=== PATIENT | female | born 1990 | race Caucasian/White ===

== ENCOUNTER 2018-11-30 09:21 | Inpatient (IN) | payer MEDICAID ==
[~2018-11-30] VITALS: Ht 154.9 cm; Wt 79.6 kg
[~2018-11-30 09:21] MED LIST: EPHEDrine SULFATE 50 MG/5 ML SYG ONE
[2018-11-30 09:38] VITALS: BP 119/69; Ht 154.9 cm; Wt 79.6 kg
[2018-11-30] MEDS ORDERED: PREN1TAB71 PO (09:39)
[2018-11-30] MEDS ORDERED: LACTATED RINGER'S 1,000 ML IV SCH ×2 (10:10→16:14)
--- NOTE | 2018-11-30 10:10 | TRIAGE ---
OB Triage Datetime Report Generated by CPN: 11/30/2018 10:10 Datetime: 11/30/2018 09:43 Stage of : OB Triage Assessment Type: Triage Maternal Assessment Level of Consciousness: Fully Conscious DTR's/Clonus: DTRs 2+; No Clonus Headache: Denies Blurred Vision: No Respiratory Effort: Unlabored; Regular Rhythm; Equal Expansion Breath Sounds, Left: Clear and Equal Breath Sounds, Right: Clear and Equal Nausea/Vomiting: Denies RUQ Epigastric Pain: Denies Lower Extremities Edema: None Degree: None Upper Extremities Edema: None Degree: None Facial Edema: None Temperature Route: Oral Fall Risk Assessment History of Falling: (0) No Secondary Diagnosis: (0) No Ambulatory Aid: (0) Bedrest/Nurse Assist IV Therapy: (0) No Gait: (0) Normal/Bedrest/Immobile Mental Status: (0) Oriented to Own Ability Fall Score: 0 Fall Risk Score Definition: No Risk: No action required Labor Evaluation Monitor Mode: External Heart Rate Monitor Mode: External US Pain Assessment Pain Scale: 8 Pain Presence: Intermittent Pain Type: Cramping Pain Location: Abdomen Vaginal Exam Dilatation (cms): 4.0 Effacement (%): 80 Station: -2 Exam By: Miracle ASHBY Datetime: 11/30/2018 09:42 Time of Arrival: 11/30/2018 09:17 EGA: 39.2 Arrived By: Ambulatory Arrived From: Home Chief Complaint: UC'S SCEDULED C/SECTION FOR TONIGHT Movement: Present Contractions: Regular Time Contractions Began: 11/30/2018 01:00 Contractions: Q 5 MIN PER PATIENT Rupture of Membranes: Denies Vaginal Bleeding: None Vaginal Discharge: Denies Recent Sexual Intercouse: Denies Abdominal Trauma: Not Applicable Patient Complaints: Contractions Time Provider Notified: 11/30/2018 10:00 Provider Notified: DR. SCHWARZ Initial Plan: EF VE
[2018-11-30] MEDS ORDERED: AMPICILLIN 2 GM/NS (PMX) 100 ML ONE (10:26)
[2018-11-30] MEDS ORDERED: AMPICILLIN 2 GM/NS (PMX) 100 ML IVPB ONE (10:30)
[2018-11-30] MEDS ORDERED: CITRIC ACID/NA CITRATE 30 ML CUP PO ONE (10:30)
[2018-11-30] MEDS ORDERED: OXYTOCIN 30 UNITS/LR 500 ML IV PRN ×2 (10:30→16:30)
[2018-11-30] MEDS ORDERED: CARBOPROST 250 MCG INJ IM PRN ×2 (10:30→16:30)
[2018-11-30] MEDS ORDERED: OXYTOCIN 30 UNITS/LR 500 ML IV SCH (10:30)
[2018-11-30] MEDS ORDERED: CEFAZOLIN 2 GM/50 ML (PMX) 50 ML IVPB SCH (10:30)
[2018-11-30] MEDS ORDERED: MISOPROSTOL 200 MCG TAB PR PRN ×2 (10:30→16:30)
[2018-11-30] MEDS ORDERED: METHYLERGONOVINE 0.2 MG INJ IM PRN ×2 (10:30→16:30)
--- NOTE | 2018-11-30 11:05 | HP ---
Date/Time of Note Date/Time of Note DATE: 11/30/18 TIME: 10:53 OB - History Hx of Present Free Text/Dictation 28y.o at 39weeks who had c/s who was scheduled tonite for elective Rc/s,came in active labor with intact membrane. VE 4-5cm CAT I tracing GBS pos 2gm ampicillin given get ready for c/s since her OB is going to be available in another 8-9 hours. patient also signed for tubal sterilization,re counselled,she desired to have it done. Chief Complaint: in labor with previous c/s Estimated Due Date: Dec 06, 2018 : 2 Para: 1 Spontaneous : 0 Therapeutic : 0 Care: Good Care Ultrasounds: Normal mid trimester US Obstetrical Complications: None Medical Complications: None Past Family/Social History * Past Medical, Surgical, Family and Obstetric Histories reviewed from chart. Blood Type: O+ Rubella: immune RPR/VDRL: Negative GBS Status: Positive HBsAG: Negative OB Admission Exam Vital Signs Vital Signs Vital Signs Date Temp Pulse Resp B/P (MAP) Pulse Ox O2 O2 Flow FiO2 Time Delivery Rate 11/30/18 98.0 119/69 09:38 (86) Physical Exam HEENT: WNL Heart: Rhythm Normal Lungs: Clear, Equal Abdomen: WNL Extremities: Normal Reflexes: Normal Cervical Dilatation: 4cm Membranes: Intact Amniotic Fluid: Unevaluable Heart Rate: 140's Accelerations: Accelerations Present Decelerations: No Decelerations Varibility: Moderate Contractions on Admission: < 5 Minutes Apart Intensity: Moderate Last 72 hours Lab Results OB Assessment/Plan Reason for admission: active labor Other Assessment: IUP 39w1d with previous c/s Plan: Section, Other (tubal sterilization) GIULIANA SCHWARZ MD Nov 30, 2018 11:04
--- NOTE | 2018-11-30 11:06 | PREAC ---
Date/Time of Note Date/Time of Note DATE: 11/30/18 TIME: 11:05 Anesthesia Eval and Record Evaluation Time Pre-Procedure Interview DATE: 11/30/18 TIME: 11:05 Age 28 Sex female NPO: 8 hrs Preoperative diagnosis repeat c section Planned procedure c section Past Medical History Past Medical History: None Surgery & Anesthesia Issues No known issue Meds Anticoagulation: No Beta Kyrie within 24 hr: No Reason Beta Kyrie not given: Pt. not on B-Kyrie Reported Medications Vit No.130/Iron/FA ( Tablet) 1 Each Tablet, 1 EACH PO 11/30/18 Current Medications Lactated Ringer's 1,000 ml @ 125 mls/hr Q8H IV Last administered on 11/30/18at 10:20; Admin Dose 125 MLS/HR; Start 11/30/18 at 10:10 Cefazolin Sodium/ Dextrose 50 ml @ 100 mls/hr ONCE IVPB ; Start 11/30/18 at 10:30 Oxytocin/Lactated Ringer's 500 ml @ 125 mls/hr POST IV ; Start 11/30/18 at 10:30 Oxytocin/Lactated Ringer's 500 ml @ 0 mls/hr ONCE PRN IV VAGINAL BLEEDING; Start 11/30/18 at 10:30 Methylergonovine Maleate (Methergine) 0.2 mg ONCE PRN IM VAGINAL BLEEDING; Start 11/30/18 at 10:30 Carboprost Tromethamine (Hemabate) 250 mcg ONCE PRN IM VAGINAL BLEEDING; Start 11/30/18 at 10:30 Misoprostol (Cytotec) 1,000 mcg ONCE PRN ND VAGINAL BLEEDING; Start 11/30/18 at 10:30 Ampicillin 100 ml @ 100 mls/hr ONCE ONCE IVPB ; Start 11/30/18 at 10:30; Stop 11/30/18 at 11:29 Meds reviewed: Yes Allergies Coded Allergies: No Known Drug Allergies (Verified Allergy, Unknown, 11/30/18) Allergies Reviewed: Yes Labs/Studies Labs Reviewed: Reviewed by anesthesiologist Result Diagram: 11/30/18 1020 Laboratory Tests 11/30/18 10:20 Blood Bank Test 11/30/18 10:20 Rh Immune Globulin Candidate NO test: Positive Studies: ECG (n/a), CXR (n/a) Pre-procedure Exam Last vitals Vital Signs Date Temp Pulse Resp B/P (MAP) Pulse Ox O2 O2 Flow FiO2 Time Delivery Rate 11/30/18 98.0 119/69 09:38 (86) Airway: Adequate mouth opening Mallampati: Mallampati I Teeth: Normal Lung: Normal Heart: Normal ASA Physical Status ASA physical status: 2 Emergency: None Planned Anesthetic Neuraxial: Spinal Planned Pain Management Sub-arachniod narcotics Pre-operative Attestations Prior to commencing anesthesia and surgery, the patient was re-evaluated, there was verification of: *The patient's identity *The results of appropriate recent lab work and preoperative vital signs *The above evaluation not changing prior to induction *Anesthetic plan, risk benefits, alternative and complications discussed with patient/family; questions answered; patient/family understands, accepts and wishes to proceed. TEDDY GARY MD Nov 30, 2018 11:06
[2018-11-30] MEDS ORDERED: morphine SULFATE/PF (10 MG/10 ML) INJ ONE (11:15)
[2018-11-30] MEDS ORDERED: OXYTOCIN 30 UNITS/LR 500 ML IV ONE (11:25)
[2018-11-30] MEDS ORDERED: METOCLOPRAMIDE 10 MG INJ ONE (11:25)
[2018-11-30] MEDS ORDERED: ONDANSETRON 4 MG INJ ONE (11:25)
[2018-11-30] MEDS ORDERED: KETOROLAC 30 MG INJ ONE (11:26)
--- NOTE | 2018-11-30 12:53 | PAC ---
Date/Time of Note Date/Time of Note DATE: 11/30/18 TIME: 12:53 Post-Anesthesia Notes Post-Anesthesia Note Last documented vital signs Vital Signs Date Temp Pulse Resp B/P (MAP) Pulse Ox O2 O2 Flow FiO2 Time Delivery Rate 11/30/18 98.0 77 19 119/69 100 09:38 (86) Activity: WNL Respiratory function: WNL Cardiovascular function: WNL Mental status: Baseline Pain reasonably controlled: Yes Hydration appropriate: Yes Nausea/Vomiting absent: No TEDDY GARY MD Nov 30, 2018 12:53
[2018-11-30] MEDS ORDERED: morphine (1 MG/ML) 10ML SYRINGE IV PRN ×3 (13:00)
[2018-11-30] MEDS ORDERED: ONDANSETRON 4 MG INJ IV PRN ×4 (13:00→17:30)
[2018-11-30] MEDS ORDERED: LORAZEPAM 2 MG INJ IV PRN (13:00)
[2018-11-30] MEDS ORDERED: morphine 2 MG INJ IV PRN ×6 (13:00→17:30)
[2018-11-30] MEDS ORDERED: DIPHENHYDRAMINE 50 MG INJ IV PRN ×3 (13:00→17:30)
[2018-11-30] MEDS ORDERED: KETOROLAC 30 MG INJ IV PRN ×2 (13:00→17:30)
[2018-11-30] MEDS ORDERED: NALOXONE (0.4 MG/ML) INJ IV PRN ×2 (13:00→17:30)
--- NOTE | 2018-11-30 13:36 | OPPN ---
Date/Time of Note Date/Time of Note DATE: 11/30/18 TIME: 13:31 Operative Report Planned Procedure Procedure date Nov 30, 2018 Procedure(s) repeat LTCS and BTL (mateo due to age for poss of future lutheran fertility Performed by see signature line Television Engineering Teacher: ACE SHARMA MD 2nd Television Engineering Teacher none Anesthesiologist: TEDDY GARY MD Pre-procedure diagnosis IUP 39w1d with previous c/s in active labor [id number] Anesthesia Type: [id number] spinal Post-Procedure Post-procedure diagnosis same as above delivered normal female infant Findings Live Baby [f], Apgars [9] and [9], weight [], position [rot], [vx] presentation [o]cord. Estimated Blood Loss: 400 - 500 mls Specimen(s) none Grafts/Implant(s) none Complication(s) none GIULIANA SCHWARZ MD Nov 30, 2018 13:36
--- NOTE | 2018-11-30 14:44 | OPR ---
DATE OF OPERATION: 11/30/2018 PREOPERATIVE DIAGNOSES: 1. , 39 weeks and 1 day with a previous section, in active labor. 2. Desire for tubal sterilization. POSTOPERATIVE DIAGNOSES: 1. , 39 weeks and 1 day with a previous section, in active labor. 2. Desire for tubal sterilization. 3. Delivered normal female infant, 9 and 9. OPERATION PERFORMED: Repeat low transverse section, bilateral tubal sterilization, Madyson. ANESTHESIA: Spinal. ANESTHESIOLOGIST: Radha Silva MD SURGEON: Rosalba Luther MD CUPOLA OPERATOR: Yue Mota MD ESTIMATED BLOOD LOSS: Approximately 500 mL. COUNTS: Final sponge count was correct. Instrument count was correct. PROCEDURE IN DETAILS: Under the proper induction of spinal anesthesia, the patient was placed in the frog position. Siu catheter was introduced into the bladder under sterile condition. Abdominal w all was prepped and draped in usual aseptic manner after repositioned to supine. A transverse incisi on was made along the previous incisional scar. Scar tissue was excised. Incision was carried down through the subcutaneous tissue to the recti fascia which was incised transversely in length of the i ncision. Fascial flap was created and 2 rectus muscles split in the midline. Peritoneal cavity was entered. Low portion of the uterus was exposed, which was extremely thin and the incision was made a la nena the uterovesical reflection and incision was carried down and ruptured and revealed clear amniot ic fluid. Normal female infant was born from the left occiput transverse position. Mouth and nose a samantha was cleaned and cord was clamped and cut. Mouth and nose were cleaned. Cord was clamped and cut , handed to the respiratory care personnel for further care. was 9 and 9. Cord blood was obta ined. The placenta was removed manually. Cavity was completely explored after uterus was exterioriz ed. Uterine incision was closed using #1 chromic catgut on the first layer and second layer using 0 chromic catgut in continuous manner. Additional couple of suture using 0 chromic catgut placed in th e bleeder area. Fallopian tube on the left side was identified. Created loop of tube was doubly lig ated with 0 plain and loop of tube was excised. Tubal lumen was cauterized. Same procedure was done on the right fallopian tube, created loop of tube on the avascular mesosalpinx and this loop of tube was doubly ligated with 0 plain and loop of tube was excised. Tubal lumen was cauterized. The reas on I did not do the salpingectomy since her age is 28 after counseling of tubal ligation and the perm anent situation of tubal ligation, the patient still wants it and because of the young age and possib ility of future zoroastrian of fertility, I decided to do the Ladd. No bleeder was noted. Abdomi nal cavity was irrigated and the sponge count taken which was correct. The uterus was pushed into th e abdominal cavity and the incisional site was checked and a piece of Surgicel laid on the incision. The parietal peritoneum was closed using 0 chromic catgut. Muscle was closed with 0 chromic catgut in continuous manner after the sponge count taken which was correct. All the blood was removed and i rrigation done. Fascia was closed with #1 Vicryl in continuous manner in 2 segments. Subcutaneous t issue irrigated. This layer was approximated with a 2-0 plain in continuous manner. Skin closed wit h Insorb except at the left side aspect, there was a little suture placed because the approximation w as not . Pressure dressing applied. Estimated blood loss approximately 500 mL. Urine output w as 200 mL. The patient withstood procedure well and was sent to recovery room in stable condition. Dictated By: ROSALBA MARTINEZ/CARLA Conf#: [id number] DID#: [id number] CC: CARMEN MENSAH MD;*EndCC*
[2018-11-30 16:20] VITALS: BP 101/57; PULSE 80; RESP 16
[2018-11-30] MEDS ORDERED: ZOLPIDEM 5 MG TAB PO PRN (16:30)
[2018-11-30] MEDS ORDERED: LANOLIN HPA 1 PKT TOP PRN (16:30)
[2018-11-30 17:26] VITALS: BP 119/60; PULSE 84
[2018-11-30] MEDS: IBUPROFEN 600 MG TAB PO SCH (18:00)
[2018-11-30 20:00] VITALS: BP 117/62; PULSE 83; RESP 19
[2018-11-30] MEDS: SENNA/DOCUSATE NA (8.6MG/50MG) TAB PO SCH (21:00)
[2018-12-01] VITALS: BP 112/61; PULSE 86; RESP 18
[2018-12-01] MEDS: LACTATED RINGER'S 1,000 ML IV SCH ×2 (00:05→08:23)
[2018-12-01 06:00] VITALS: BP 99/57; PULSE 93; RESP 19
[2018-12-01] MEDS: IBUPROFEN 600 MG TAB PO SCH ×4 (06:00→17:44)
--- NOTE | 2018-12-01 07:03 | PN ---
Date/Time of Note Date/Time of Note DATE: 12/01/18 TIME: 07:00 OB Subjective Subjective Subjective POD#1 Patient is doing well. She denies nausea, vomiting, shortness of breath, chest pain, headache. She has been ambulating without difficulty, tolerating regular diet. Pain is well controlled on current medications OB Objective Objective Objective VS - Last 72 Hours, by Label Date Temp Pulse Resp B/P (MAP) Pulse Ox O2 O2 Flow FiO2 Time Delivery Rate 12/01/18 98.9 93 19 99/57 (71) 97 06:00 12/01/18 98.3 86 18 112/61 96 00:00 (78) 11/30/18 98.7 83 19 117/62 94 20:00 (80) 11/30/18 84 119/60 17:26 (79) 11/30/18 98.1 80 16 101/57 98 Room Air 16:20 (72) 11/30/18 98.0 119/69 09:38 (86) General: AAO X 3, comfortable, NAD, appropriate mood and affect. Heart: RRR +S1, +S2, no murmurs. Lungs: Clear to auscultation (B/L), no rales, rhonchi or wheezing. ABD: +BS. Soft, non-tender. Uterus 2 cm below umbilicus Incision: Clear, dry, intact. No erythema, drainage or induration. Flank: No CVA tenderness (B/L) LE: Mild edema. No clubbing, cyanosis, thigh or calf tenderness (B/L). Homans ' sign is negative OB Assessment/Plan Other plan: 28 years old s/p repeat delivery at 39 weeks. POD#1 - AF, VSS - Baby is doing well, at bed side. She is bonding well - Contraception methods with R/B/A/FR discussed - Continue care CARMEN MENSAH Dec 01, 2018 07:03
[2018-12-01 08:00] VITALS: BP 101/53; PULSE 90; RESP 18
[2018-12-01] MEDS: SENNA/DOCUSATE NA (8.6MG/50MG) TAB PO SCH ×2 (13:04→20:15)
[2018-12-01] MEDS: OXYCODONE/ACETAMINOPHEN (5/325) TAB PO PRN ×2 (14:46→20:15)
[2018-12-01 16:00] VITALS: BP 96/46; PULSE 81; RESP 18
[2018-12-01 20:00] VITALS: BP 112/60; PULSE 85; RESP 18
[2018-12-02] MEDS: IBUPROFEN 600 MG TAB PO SCH ×5 (00:45→23:31)
[2018-12-02 04:00] VITALS: BP 109/54; PULSE 82; RESP 18
--- NOTE | 2018-12-02 07:42 | OPPN ---
Date/Time of Note Date/Time of Note DATE: 12/01/18 TIME: 07:40 A 8 year female s/p spinal for post op Pain with duramorph. NO pain itchuinf, headache, N/V, neural deficit. Anesthesia Follow up Anesthesia Follow up Last documented vital signs Vital Signs Date Temp Pulse Resp B/P (MAP) Pulse Ox O2 O2 Flow FiO2 Time Delivery Rate 12/02/18 98.1 82 18 109/54 Room Air 04:00 (72) 12/01/18 94 08:00 TEDDY GARY MD Dec 02, 2018 07:41
[2018-12-02 08:00] VITALS: BP 120/69; PULSE 81; RESP 20
[2018-12-02] MEDS: SENNA/DOCUSATE NA (8.6MG/50MG) TAB PO SCH ×2 (08:29→20:14)
[2018-12-02] MEDS: OXYCODONE/ACETAMINOPHEN (5/325) TAB PO PRN ×3 (08:30→20:14)
[2018-12-02 16:00] VITALS: BP 118/66; PULSE 87; RESP 18
--- NOTE | 2018-12-02 18:31 | PN ---
Date/Time of Note Date/Time of Note DATE: 12/02/18 TIME: 18:27 OB Subjective Subjective Subjective POD#2 Patient is doing well. She denies nausea, vomiting, shortness of breath, chest pain, headache. She has been ambulating without difficulty, tolerating regular diet. Pain is well controlled on current medications OB Objective Objective Objective General: AAO X 3, comfortable, NAD, appropriate mood and affect. Heart: RRR +S1, +S2, no murmurs. Lungs: Clear to auscultation (B/L), no rales, rhonchi or wheezing. ABD: +BS. Soft, non-tender. Uterus 2 cm below umbilicus Incision: Clear, dry, intact. No erythema, drainage or induration. Flank: No CVA tenderness (B/L) LE: Mild edema. No clubbing, cyanosis, thigh or calf tenderness (B/L). Homans 'sign is negative OB Assessment/Plan Other plan: 28 years old s/p repeat delivery at 39 weeks. POD#2 - AF, VSS - Baby is doing well, at bed side. She is bonding well - Contraception methods with R/B/A/FR discussed - Continue care - Discharge home tomorrow. - Prescription and instruction given. - Follow-up in 1 and 6 weeks in clinic CARMEN MENSAH Dec 02, 2018 18:31
--- NOTE | 2018-12-02 18:31 | DS ---
Date/Time of Note Date/Time of Note DATE: 12/02/18 TIME: 18:31 Obstetrical Discharge Record Final Diagnosis Final Diagnosis: Term delivered Other Final Diagnosis 28 years old s/p repeat delivery at 39 weeks. POD#2. Her course was unremarkable she is ambulating and tolerating regular diet. She is voiding without difficulty. Pain is controlled on current medication. - AF, VSS - Baby is doing well, at bed side. She is bonding well - Contraception methods with R/B/A/FR discussed - Continue care - Discharge home tomorrow. - Prescription and instruction given. - Follow-up in 1 and 6 weeks in clinic Section Section: Repeat Condition on Discharge Physical Assessment Last Vitals: Vital Signs Date Temp Pulse Resp B/P (MAP) Pulse Ox O2 O2 Flow FiO2 Time Delivery Rate 12/02/18 97.9 87 18 118/66 Room Air 16:00 (83) 12/01/18 94 08:00 Voiding: Yes Bowel Movement: Yes Breast: Soft, non-tender Fundus: Firm Calf Tenderness: No Patient Condition: Stable CARMEN MENSAH Dec 02, 2018 18:31
[2018-12-02 20:07] VITALS: BP 128/73; PULSE 80; RESP 22
[2018-12-03 03:55] VITALS: BP 115/56; PULSE 74; RESP 22
[2018-12-03] MEDS: OXYCODONE/ACETAMINOPHEN (5/325) TAB PO PRN (06:08)
[2018-12-03] MEDS: IBUPROFEN 600 MG TAB PO SCH ×2 (06:08→11:56)
[2018-12-03 08:30] VITALS: BP 116/72; PULSE 78; RESP 18
[2018-12-03] MEDS ORDERED: DIPHTH/TET/ACEL PERTUSS (ADULT) 0.5 ML VIAL IM* ONE (09:00)
[2018-12-03] MEDS: SENNA/DOCUSATE NA (8.6MG/50MG) TAB PO SCH (09:15)
== END 2018-12-03 13:30 | disposition home or self-care (01) | DRG 785 ==
LOC: OBT 09:21 → L-D 09:25 → OBT 10:05 → L-D 11:16 → PP1 16:08
PROVIDERS: ADMIT Obstetrics & Gynecology; ATTEND Obstetrics & Gynecology
PROC: 0UB70ZZ Excision of Bilateral Fallopian Tubes, Open Approach (ICD-10-PCS; 2018-11-30)
PROC: 10D00Z1 Extraction of Products of Conception, Low, Open Approach (ICD-10-PCS; principal; 2018-11-30 11:45)
DX: O34.219 Maternal care for unspecified type scar from previous cesarean delivery (principal); O99.824 Streptococcus B carrier state complicating childbirth; Z3A.39 39 weeks gestation of pregnancy; Z37.0 Single live birth; Z30.2 Encounter for sterilization
CPT/HCPCS: 85025; 85610; 85730; 86592; 86850; 86900; 86901; 88302; G0463; J0290; J0690; J1885; J2274; J2405; J2590; J2765; J7120